=== PATIENT | female | born 1970 | race Caucasian/White ===

== ENCOUNTER 2024-01-04 12:21 | Emergency (ER) | payer MEDICAID ==
[~2024-01-04] VITALS: Ht 160 cm; Wt 73.0 kg
[2024-01-04 12:26] VITALS: O2SAT 98
[2024-01-04] MEDS ORDERED: IBUPROFEN 600MG TABLET PO STA (13:00)
[2024-01-04] MEDS ORDERED: T3 PO (15:41)
[2024-01-04] MEDS: IBUPROFEN 600MG TABLET PO NR (16:10)
[2024-01-04 16:11] VITALS: BP 129/87; PULSE 61; RESP 20; TEMP 98.3
== END 2024-01-04 16:12 | disposition home or self-care (01) ==
LOC: ER 12:21
DX: R51.9 Headache, unspecified (principal); I10 Essential (primary) hypertension
CPT/HCPCS: 99284